=== PATIENT | female | born 1945 | race Caucasian/White ===

== ENCOUNTER 2025-03-21 13:04 | Emergency (ER) | payer MEDICARE, BC | END 2025-03-21 14:47 | disposition home or self-care (01) | LOC: JP.ED 13:04 | DX: S62.616A Displaced fracture of proximal phalanx of right little finger, initial encounter for closed fracture (principal); Z79.899 Other long term (current) drug therapy; Z88.1 Allergy status to other antibiotic agents; W19.XXXA Unspecified fall, initial encounter | CPT/HCPCS: 29125; 73120-LT; 73130-26-LT; 73130-LT; 99283-25 ==